=== PATIENT | female | born 1995 | race Caucasian/White ===

== ENCOUNTER 2020-01-28 20:14 | Emergency (ER) | payer SELFPAY ==
[~2020-01-28] VITALS: Ht 170.2 cm; Wt 63.0 kg
[2020-01-28] MEDS ORDERED: MOTRIN400 MG PO (21:22)
[2020-01-28 21:35] VITALS: BP 119/72
== END 2020-01-28 21:39 | disposition home or self-care (01) | DRG 605 ==
LOC: ED 20:14
DX: S90.31XA Contusion of right foot, initial encounter (principal); W55.19XA Other contact with horse, initial encounter; Y93.K9 Activity, other involving animal care; Y92.71 Barn as the place of occurrence of the external cause